=== PATIENT | male | born 1995 | race Caucasian/White ===

== ENCOUNTER 2018-09-19 17:59 | Emergency (ER) | payer SELFPAY ==
[~2018-09-19] VITALS: Ht 167.6 cm; Wt 62.6 kg
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
[2018-09-19] MEDS ORDERED: LACTATED RINGERS 1,000 ML IV ONE ×2 (18:31→20:18)
--- NOTE | 2018-09-19 18:34 | ED General ---
General Chief Complaint: Dizziness/Syncope Stated Complaint: SWEATING,DIZZY,NAUSEA Nursing Triage Note: Patient to ER triage room via wheelchair. Patient states he was outside working today and suddenly got very hot. he states he stopped sweating and then became dizzy and nauseated. Patient states he feels weak all over. Patient states onset was several hours ago and he cooled off in the air conditioning and poured cold water on himself. Nursing Sepsis Screen: No Definite Risk Source of Information: Patient (SPEECH RAPID AND MUMBLES, DIFFICULT TO UNDERSTAND AT TIMES) History of Present Illness Date Seen by Provider: Sep 19, 2018 Time Seen by Provider: 18:25 Initial Comments PT ARRIVES VIA POV STATES THAT HE WORKS AT [employer] IN [place]--NO AIR CONDITIONING STATES THAT AROUND 1500 TODAY HE STARTED "FEELING SICK AND TIRED" AND GOT REALLY HOT "QUIT SWEATING' "ALOT OF CONFUSION" HAS NOT URINATED ALL DAY TODAY FEELS WEAK ALL OVER AROUND 1600, HE TRIED TO DRINK SOME WATER, BUT "HIS THROAT CLOSED UP AND HE GAGGED AND FELT NAUSEATED" WENT INSIDE INTO AIR CONDITIONING PT THEN DROVE HERE FROM [place]--STATES HE HAS A CLASS TONIGHT, BUT CAME HERE INSTEAD PCP: DR. BIRD IN [place] Allergies and Home Medications Allergies Coded Allergies: No Known Drug Allergies (Unverified , 09/19/18) Patient Home Medication List Home Medication List Reviewed: Yes Review of Systems Review of Systems Constitutional: see HPI, dizziness, malaise, weakness EENTM: no symptoms reported Respiratory: no symptoms reported Cardiovascular: no symptoms reported Gastrointestinal: see HPI, nausea Genitourinary: see HPI, decreased output Musculoskeletal: no symptoms reported Skin: no symptoms reported Psychiatric/Neurological: See HPI; Denies Headache, Denies Numbness, Denies Paresthesia, Denies Seizure, Denies Tingling Hematologic/Lymphatic: Other (HX OF DVT [facility] 02/2018-UNKNOWN CAUSE--QUIT TAKING BLOOD THINNERS A "MONTH OR TWO AGO") Immunological/Allergic: no symptoms reported Past Tgrlhvs-Ybrtnn-Gbiwnr Hx Patient Social History Alcohol Use: Regular Use (WEEKENDDS) Recreational Drug Use: No Smoking Status: Former Smoker (1 02/15 PPD--QUIT 02/2018) Type Used: Cigarettes 2nd Hand Smoke Exposure: No Recent Foreign Travel: No Contact w/Someone Who Travel: No Recent Infectious Disease Expo: No Recent Hopitalizations: No Physical Abuse: No Sexual Abuse: No Mistreated: No Fear: No Immunizations Up To Date PED Vaccines UTD: Yes Seasonal Allergies Seasonal Allergies: No Past Medical History Surgeries: No Respiratory: No Cardiac: Yes (DVT RIGHT LEG 02/2018--UNKNOWN CAUSE--QUIT TAKING BLOOD THINNERS AFTER A FEW MONTHS) Deep Vein Thrombosis Neurological: No Genitourinary: No Gastrointestinal: Yes (GASTRITIS) Musculoskeletal: No Endocrine: No HEENT: No Cancer: No Psychosocial: No Integumentary: No Blood Disorders: Yes (DVT RIGHT LEG 02/2018--UNKNOWN CAUSE, QUIT TAKING BLOOD THINNERS AFTER A FEW MONTHS) Physical Exam Vital Signs Vital Signs - First Documented 09/19/18 18:04 Temp 96.4 Pulse 74 Resp 20 B/P (MAP) 156/100 (118) Pulse Ox 98 O2 Delivery Room Air Capillary Refill : Less Than 3 Seconds Height, Weight, BMI Height: 5'6.00" Weight: 138lbs. oz. 62.545436lk; BMI Method:Stated General Appearance: No Apparent Distress, Thin, Other (VERY DIRTY; SPEECH VERY RAPID, SOMEWHAT MUMBLED AND DIFFICULT TO UNDERSTAND AT TIMES. SOME DIFFICULTY CONCENTRATING) HEENT: PERRL/EOMI Neck: Normal Inspection Respiratory: Normal Breath Sounds, No Accessory Muscle Use, No Respiratory Distress Cardiovascular: Regular Rate, Rhythm, No Edema, No JVD, No Murmur, Normal Peripheral Pulses Gastrointestinal: Non Tender, Soft Extremity: Normal Capillary Refill, Normal Inspection, Normal Range of Motion, Non Tender, No Calf Tenderness, No Pedal Edema Neurologic/Psychiatric: Alert, Oriented x3, No Motor/Sensory Deficits, clean room assembler II- XII Norm as Tested Skin: Normal Color, Warm/Dry Progress/Results/Core Measures Suspected Sepsis Recent Fever Within 48 Hours: No Infection Criteria Present: None New/Unexplained Altered Menta: No Sepsis Screen: No Definite Risk SIRS Temperature:96.4 Pulse: 74 Respiratory Rate: 20 Laboratory Tests 09/19/18 18:36: White Blood Count 7.9 Blood Pressure 156 /100 Mean: 118 Laboratory Tests 09/19/18 18:36: Creatinine 1.05, INR Comment 1.0, Platelet Count 201, Total Bilirubin 0.3 Results/Orders Lab Results Laboratory Tests Test 09/19/18 18:36 09/19/18 18:38 Range/Units White Blood Count 7.9 4.3-11.0 10^3/uL Red Blood Count 4.54 4.35-5.85 10^6/uL Hemoglobin 13.5 13.3-17.7 G/DL Hematocrit 40 40-54 % Mean Corpuscular Volume 88 80-99 FL Mean Corpuscular Hemoglobin 30 25-34 PG Mean Corpuscular Hemoglobin Concent 34 32-36 G/DL Red Cell Distribution Width 13.0 10.0-14.5 % Platelet Count 201 130-400 10^3/uL Mean Platelet Volume 11.3 H 7.4-10.4 FL Neutrophils (%) (Auto) 57 42-75 % Lymphocytes (%) (Auto) 29 12-44 % Monocytes (%) (Auto) 10 0-12 % Eosinophils (%) (Auto) 3 0-10 % Basophils (%) (Auto) 0 0-10 % Neutrophils # (Auto) 4.6 1.8-7.8 X 10^3 Lymphocytes # (Auto) 2.3 1.0-4.0 X 10^3 Monocytes # (Auto) 0.8 0.0-1.0 X 10^3 Eosinophils # (Auto) 0.3 0.0-0.3 10^3/uL Basophils # (Auto) 0.0 0.0-0.1 10^3/uL Prothrombin Time 13.2 12.2-14.7 SEC INR Comment 1.0 0.8-1.4 Activated Partial Thromboplast Time 26 24-35 SEC Sodium Level 140 135-145 MMOL/L Potassium Level 4.1 3.6-5.0 MMOL/L Chloride Level 107 98-107 MMOL/L Carbon Dioxide Level 22 21-32 MMOL/L Anion Gap 11 5-14 MMOL/L Blood Urea Nitrogen 18 7-18 MG/DL Creatinine 1.05 0.60-1.30 MG/DL Estimat Glomerular Filtration Rate > 60 BUN/Creatinine Ratio 17 Glucose Level 98 70-105 MG/DL Calcium Level 9.6 8.5-10.1 MG/DL Corrected Calcium 9.2 8.5-10.1 MG/DL Magnesium Level 2.3 1.8-2.4 MG/DL Total Bilirubin 0.3 0.1-1.0 MG/DL Aspartate Amino Transf (AST/SGOT) 28 5-34 U/L Alanine Aminotransferase (ALT/SGPT) 25 0-55 U/L Alkaline Phosphatase 62 40-136 U/L Total Creatine Kinase 156 30-200 U/L Creatine Kinase MB 1.6 <6.6 NG/ML Myoglobin 31.2 10.0-92.0 NG/ML Total Protein 7.5 6.4-8.2 GM/DL Albumin 4.5 3.2-4.5 GM/DL Serum Alcohol < 10 <10 MG/DL Urine Color YELLOW Urine Clarity CLEAR Urine pH 6.5 5-9 Urine Specific [place] 1.015 L 1.016-1.022 Urine Protein NEGATIVE NEGATIVE Urine Glucose (UA) NEGATIVE NEGATIVE Urine Ketones 1+ H NEGATIVE Urine Nitrite NEGATIVE NEGATIVE Urine Bilirubin NEGATIVE NEGATIVE Urine Urobilinogen NORMAL NORMAL MG/DL Urine Leukocyte Esterase NEGATIVE NEGATIVE Urine RBC (Auto) NEGATIVE NEGATIVE Urine RBC NONE /HPF Urine WBC NONE /HPF Urine Crystals NONE /LPF Urine Bacteria NEGATIVE /HPF Urine Casts PRESENT /LPF Urine Hyaline Casts 2-5 H /LPF Urine Mucus NEGATIVE /LPF Urine Culture Indicated NO Urine Opiates Screen NEGATIVE NEGATIVE Urine Oxycodone Screen NEGATIVE NEGATIVE Urine Methadone Screen NEGATIVE NEGATIVE Urine Propoxyphene Screen NEGATIVE NEGATIVE Urine Barbiturates Screen NEGATIVE NEGATIVE Ur Tricyclic Antidepressants Screen NEGATIVE NEGATIVE Urine Phencyclidine Screen NEGATIVE NEGATIVE Urine Amphetamines Screen NEGATIVE NEGATIVE Urine Methamphetamines Screen NEGATIVE NEGATIVE Urine Benzodiazepines Screen NEGATIVE NEGATIVE Urine Cocaine Screen NEGATIVE NEGATIVE Urine Cannabinoids Screen NEGATIVE NEGATIVE My Orders Orders - MYESHA HERRERA DO Ed Iv/Invasive Line Start (09/19/18 18:31) Ekg Tracing (09/19/18 18:31) Monitor-Rhythm Ecg Trace Only (09/19/18 18:31) Orthostatic Vital Signs (Adult (09/19/18 18:31) Alcohol (09/19/18 18:31) Cbc With Automated Diff (09/19/18 18:31) Comprehensive Metabolic Panel (09/19/18 18:31) Creatine Kinase (09/19/18 18:31) Creatine Kinase Mb (09/19/18 18:31) Drug Screen Stat (Urine) (09/19/18 18:31) Magnesium (09/19/18 18:31) Protime With Inr (09/19/18 18:31) Partial Thromboplastin Time (09/19/18 18:31) Ua Culture If Indicated (09/19/18 18:31) Myoglobin Serum (09/19/18 18:31) Ed Iv/Invasive Line Start (09/19/18 18:31) Ed Iv/Invasive Line Start (09/19/18 18:31) Lactated Ringers (Lr 1000 Ml Iv Solution (09/19/18 18:31) Ondansetron Injection (Zofran Injectio (09/19/18 19:00) Ed Iv/Invasive Line Start (09/19/18 20:18) Lactated Ringers (Lr 1000 Ml Iv Solution (09/19/18 20:18) Medications Given in ED Current Medications Medications Dose Ordered Sig/Robb Route Start Time Stop Time Status Last Admin Dose Admin Lactated Ringer's 1,000 ml @ 0 mls/hr Q0M ONCE IV 09/19/18 18:31 09/19/18 18:33 DC 09/19/18 18:40 0 MLS/HR Lactated Ringer's 1,000 ml @ 0 mls/hr Q0M ONCE IV 09/19/18 20:18 09/19/18 20:19 DC 09/19/18 20:20 0 MLS/HR Ondansetron HCl 4 mg ONCE ONCE IVP 09/19/18 19:00 09/19/18 19:01 DC 09/19/18 18:54 4 MG Vital Signs/I&O 09/19/18 18:04 Temp 96.4 Pulse 74 Resp 20 B/P (MAP) 156/100 (118) Pulse Ox 98 O2 Delivery Room Air Capillary Refill : Less Than 3 Seconds Blood Pressure Mean: 118 Progress Note : Progress Note ORTHOSTATICS ESSENTIALLY NORMAL, BUT PT C/O DIZZINESS WITH THEM FEELS MUCH BETTER AT DISMISSAL, DECLINES ANOTHER LITER OF FLUIDS, STATES HE FEELS FINE. ECG Initial ECG Impression Date: Sep 19, 2018 Initial ECG Impression Time: 18:36 Initial ECG Rate: 60 Initial ECG Rhythm: Normal Sinus Initial ECG Comparisson: No Previous ECG Available Departure Impression Primary Impression: Heat exhaustion Disposition: 01 HOME, SELF-CARE Condition: Improved Departure-Patient Inst. Referrals: NO,LOCAL PHYSICIAN (PCP/Family) Primary Care Physician Patient Instructions: Heat Exhaustion and Heat Stroke (DC) Add. Discharge Instructions: LOTS OF CLEAR LIQUIDS--DRINK EQUAL AMOUNTS OF WATER AND GATORADE--DRINK ENOUGH SO YOU ARE URINATING EVERY 2-3 HOURS WHILE AWAKE KEEP COOL RETURN TO ER IF SYMPTOMS WORSEN All discharge instructions reviewed with patient and/or family. Voiced understanding. MYESHA HERRERA DO Sep 19, 2018 18:34
--- NOTE | 2018-09-19 18:38 | NUR ---
SOMEONE ELSE SENDING LABS TO LAB AND SOMEONE ELSE DOING EKG
--- NOTE | 2018-09-19 18:40 | NUR ---
SOMEONE SENDING UA TO LAB
[2018-09-19 18:42] LABS: BASOPHILS % (AUTO) 0 % (0-10); EOSINOPHILS # (AUTO) 0.3 10^3/uL (0.0-0.3); EOSINOPHILS % (AUTO) 3 % (0-10); HEMATOCRIT 40 % (40-54); HEMOGLOBIN 13.5 G/DL (13.3-17.7); LYMPHOCYTES # (AUTO) 2.3 X 10^3 (1.0-4.0); LYMPHOCYTES % (AUTO) 29 % (12-44); MEAN CORPUSCULAR HEMOGLOBIN 30 PG (25-34); MEAN CORPUSCULAR HGB CONC 34 G/DL (32-36); MEAN CORPUSCULAR VOLUME 88 FL (80-99); MEAN PLATELET VOLUME 11.3 FL (7.4-10.4); MONOCYTES # (AUTO) 0.8 X 10^3 (0.0-1.0); MONOCYTES % (AUTO) 10 % (0-12); NEUTROPHILS # (AUTO) 4.6 X 10^3 (1.8-7.8); NEUTROPHILS % (AUTO) 57 % (42-75); PLATELET COUNT 201 10^3/uL (130-400); WHITE BLOOD COUNT 7.9 10^3/uL (4.3-11.0)
[2018-09-19 18:44] LABS: BILIRUBIN,URINE NEGATIVE (NEGATIVE); CLARITY,URINE CLEAR; COLOR,URINE YELLOW; GLUCOSE, URINE (UA) NEGATIVE (NEGATIVE); KETONES,URINE 1+ (NEGATIVE); LEUKOCYTE ESTERASE ,URINE NEGATIVE (NEGATIVE); NITRITE,URINE NEGATIVE (NEGATIVE); PH,URINE 6.5 (5-9); PROTEIN,URINE NEGATIVE (NEGATIVE); UROBILINOGEN,URINE NORMAL (NORMAL)
--- NOTE | 2018-09-19 18:46 | NUR ---
TELE APPLIED BY NM SHOWS SR 62.P OX R/A IS 97.
[2018-09-19 18:50] LABS: BACTERIA,URINE NEGATIVE /HPF
--- NOTE | 2018-09-19 18:50 | NUR ---
ORTHO VS. LAYING PT DIZZY 139/98 60 STANDING " LITTLE" BIT MORE DIZZZY 142/94 76 STANDING SAME DIZZY 137/98 68 PT WITH SLIGHT SWAYING AND 300 BOLUS COMPLETED AL;READY. DR NOTIFIED 1850...
[2018-09-19 18:53] LABS: PROTHROMBIN TIME PATIENT 13.2 SEC (12.2-14.7)
[2018-09-19 18:58] LABS: AMPHETAMINE SCREEN, URINE NEGATIVE (NEGATIVE); BARBITURATE SCREEN URINE NEGATIVE (NEGATIVE); BENZODIAZEPINES SCREEN URINE NEGATIVE (NEGATIVE); CANNABINOID SCREEN, URINE NEGATIVE (NEGATIVE); COCAINE SCREEN URINE NEGATIVE (NEGATIVE); METHADONE STAT NEGATIVE (NEGATIVE); METHAMPHETAMINE SCREEN URINE S NEGATIVE (NEGATIVE); OPIATE SCREEN URINE NEGATIVE (NEGATIVE); OXYCODONE STAT NEGATIVE (NEGATIVE); PROPOXYPHENE STAT NEGATIVE (NEGATIVE); TRICYCLIC ANTIDEPRESSANTS SCRE NEGATIVE (NEGATIVE)
[2018-09-19] MEDS ORDERED: ONDANSETRON 4 MG/2 ML (SDV) Z0FRAN IVP ONE (19:00)
[2018-09-19 19:02] LABS: ALANINE AMINOTRANSFERASE 25 U/L (0-55); ALBUMIN 4.5 GM/DL (3.2-4.5); ALKALINE PHOSPHATASE 62 U/L (40-136); BILIRUBIN,TOTAL 0.3 MG/DL (0.1-1.0); BUN/CREATININE RATIO 17; CALCIUM 9.6 MG/DL (8.5-10.1); CARBON DIOXIDE 22 MMOL/L (21-32); CREATINE KINASE 156 U/L (30-200); CREATININE SERUM 1.05 MG/DL (0.60-1.30); GFR ESTIMATED > 60; GLUCOSE 98 MG/DL (70-105); TOTAL PROTEIN 7.5 GM/DL (6.4-8.2)
[2018-09-19 19:09] LABS: CREATINE KINASE MB 1.6 NG/ML (<6.6)
--- NOTE | 2018-09-19 19:42 | NUR ---
LITER BOLUS COMPLETED AND PT STILL NAUSEATED W/O V/D IN ER VISIT THUS FAR. HAS UAD MORE IN URINAL. PT REMAINS ALERT GCS 15 AND HERE BY SELF.
[2018-09-19 20:16] LABS: CHLORIDE 107 MMOL/L (98-107); MAGNESIUM 2.3 MG/DL (1.8-2.4); POTASSIUM 4.1 MMOL/L (3.6-5.0); SODIUM 140 MMOL/L (135-145)
--- NOTE | 2018-09-19 20:23 | NUR ---
DR WANTS 2ND LR BOLUS THEN D/C PT. WITH DR IN ROOM PT DOES NOT WANT 2ND BAG OF IVF. SO I WILL BE D/CING PT.
[2018-09-19 20:35] VITALS: BP 124/89
--- NOTE | 2018-09-19 20:35 | NUR ---
TELE SHOWED SR 61 AT D/C AND PT AMBUL;ATED IN ROOM W/O PROBLEMS. PT SAID " I FEEL ALOT BETTER NOW".
--- NOTE | 2018-09-19 20:35 | NUR ---
D/C INSTRUCTIONS TO PT. TOLD TO READ ALL PAPERS. NO SCRIPTS GIVEN. PT LEFT AMBULATORY BY SELF. PT KNOWS F/U. I WENT OVER THE HANDTYPED BY INFORMATION ON THE CHART. IV D/CD BY ME PRIOR TO D/C.
== END 2018-09-19 20:35 | disposition home or self-care (01) ==
LOC: ER 18:01
DX: T67.3XXA Heat exhaustion, anhydrotic, initial encounter (principal); Z87.891 Personal history of nicotine dependence; Z86.718 Personal history of other venous thrombosis and embolism
CPT/HCPCS: 36415; 80053; 80306; 80320; 81000; 82550; 82553; 83735; 83874; 85025; 85610; 85730; 93005; 93041